=== PATIENT | male | born 1975 | race Two or more races ===

== ENCOUNTER 2017-08-05 19:25 | Emergency (ER) | payer SELFPAY ==
[~2017-08-05] VITALS: Ht 170.2 cm; Wt 108.9 kg
--- NOTE | 2017-08-05 20:13 | PHYS DOC ---
Past Medical History Past Medical History: Diabetes-Type II Past Surgical History: No Surgical History Alcohol Use: None Drug Use: None Adult General Chief Complaint Chief Complaint: NOSEBLEED HPI HPI Patient is a 42 year old M who presents with a nosebleed that started earlier today. Patient states bleeding started out of the left naris. Patient denies any lightheaded dizziness. Patient denies any chest pain returns of breath. Patient states he is not on any anti-quadrant medication. Patient has no other complaints. Review of Systems Review of Systems GEN: Denies fevers, chills, sweats HEENT: Nose bleeding CV: Denies chest pain RESP: Denies shortness of air, cough GI: Denies n/v/d NEURO: Denies confusion, dizziness MSK: Denies weakness, joint pain/swelling All other systems were reviewed and found to be within normal limits, except as documented in this note. Current Medications Current Medications Current Medications Medications (Trade) Dose Ordered Sig/Robyn Start Time Stop Time Status Last Admin Dose Admin Lidocaine/Sodium Bicarbonate (Buffered Lidocaine 1%) 20 ml 1X ONCE 08/05/17 20:15 08/05/17 20:16 DC 08/05/17 20:37 20 ML Phenylephrine HCl (Julian-Synephrine 0.5% Nasal) 2 spray PRN Q4HRS PRN 08/05/17 20:15 08/05/17 20:15 DC Phenylephrine HCl (Julian-Synephrine 1% Nasal) 2 spray PRN Q4HRS PRN 08/05/17 20:30 08/05/17 20:37 2 SPRAY Allergies Allergies Allergies Coded Allergies Type Severity Reaction Last Updated Verified aspirin Allergy Intermediate "BLOOD GETS THIN" 08/05/17 Yes Physical Exam Physical Exam GEN.: No apparent distress. Alert and oriented. HEENT: Head is normocephalic, atraumatic, dried blood to left naris however no active bleeding noted on exam NECK: Supple. LUNGS: CTAB. HEART: RRR, S1, S2 present. Peripheral pulses intact ABDOMEN: Soft, nontender. Positive bowel sounds. EXTREMITIES: Without any cyanosis. NEUROLOGIC: Normal speech, normal tone PSYCHIATRIC: Normal affect, normal mood. SKIN: No ulcerations Current Patient Data Vital Signs Vital Signs Date Time Temp Pulse Resp B/P (MAP) Pulse Ox O2 Delivery O2 Flow Rate FiO2 08/05/17 21:05 64 16 129/69 (89) 96 Room Air 08/05/17 19:30 97.4 97.4 EKG EKG [] Radiology/Procedures Radiology/Procedures Procedure nasal packing Reason: epistaxis Procedure: A Rhino Rocket was placed in the left naris anteriorly with approximately 10 mL of air to inflate the balloon and tolerated the procedure well. No complications. [] Course & Med Decision Making Course & Med Decision Making Pertinent Labs and Imaging studies reviewed. (See chart for details) ED course: Patient was seen and examined in the emergency room and is no active bleeding at this time Cottonball impregnated with lidocaine and Julian-Synephrine was inserted in the left nostril Wants to cottonball was removed the patient's nose started bleeding therefore is packed with a Rhino Rocket On reexamination explained the patient the plan to discharge since approximately 30 minutes after the Rhino Rocket was placed the bleeding has stopped. Patient is stable for discharge. Recommended follow-up with ENT in approximately 3 days to have the Rhino Rocket removed. Patient was sent home on antibiotics. MDM: After reviewing the chart, CC/HPI/PMH, physical exam, I do not believe the patient has significant epistaxis requiring time. I believe patient stable for discharge. Bleeding has stopped with a Rhino Rocket pack in left naris. Placed the patient in a bikes and follow-up with ENT has not patient to have the packing removed. These verbal instructions admin described to the patient. Additional verbal discharge instructions were provided to the patient and that if symptoms get worse or any new symptoms arise that are worrisome to the patient he is to return to the emergency room immediately [] Dragon Disclaimer Dragon Disclaimer This electronic medical record was generated, in whole or in part, using a voice recognition dictation system. Departure Departure Impression: Primary Impression: Epistaxis Disposition: HOME, SELF-CARE Condition: IMPROVED Referrals: SHEN JASON MD (PCP) NOELLE EDWARDS MD Please call office for packing removal Patient Instructions: Nosebleed Additional Instructions: Please follow-up with your family physician in one to 2 days and please follow- up with ENT in approximately 3 days to have the packing removed. Scripts Azithromycin (ZITHROMAX) 250 Mg Tablet 1 PKG PO UD, #6 TAB Prov: KB MARIN DO 08/05/17 KB MARIN DO Aug 05, 2017 20:13
[2017-08-05] MEDS ORDERED: LIDOCAINE 1% / SOD BICARB 8.4% 20 ML VIAL. IJ ONE (20:15)
[2017-08-05] MEDS ORDERED: PHENYLEPHRINE 0.5% NASAL SPRAY 15ML BOTTLE. NS PRN (20:15)
[2017-08-05] MEDS ORDERED: PHENYLEPHRINE 1% NASAL SPRAY 15ML BOTTLE. NS PRN (20:30)
[2017-08-05] MEDS ORDERED: AZIT250T PO (22:57)
[2017-08-05 23:56] VITALS: BP 128/87
== END 2017-08-05 23:56 | disposition home or self-care (01) ==
LOC: ER 19:25
DX: R04.0 Epistaxis (principal); E11.9 Type 2 diabetes mellitus without complications; Z88.6 Allergy status to analgesic agent
CPT/HCPCS: 30901; 99284-25